=== PATIENT | male | born 1950 | race Caucasian/White ===

== ENCOUNTER 2021-08-25 00:57 | Emergency (ER) | payer OTHER, MEDICAID ==
[~2021-08-25] VITALS: Ht 167.6 cm; Wt 90.7 kg
[2021-08-25 01:00] VITALS: BP 130/82
--- NOTE | 2021-08-25 01:00 | NUR ---
adle galvan. taken to chair C
--- NOTE | 2021-08-25 01:52 | NUR ---
Dr. Maynard evaluting pt at this time.
--- NOTE | 2021-08-25 02:05 | NUR ---
PATIENT BIB [facility] POLICE DEPT. PATIENT EXAMINED BY DR. VIGIL. PATIENT MEDICALLY CLEARED AND RELEASED IN CUSTODY IN STABLE CONDITION. ORIGINAL PRE-BOOK FORM GIVEN TO OFFICER EILEEN, #[id number].
== END 2021-08-25 02:05 ==
LOC: MED 00:57
DX: F10.10 Alcohol abuse, uncomplicated (principal); Z02.89 Encounter for other administrative examinations; V89.2XXA Person injured in unspecified motor-vehicle accident, traffic, initial encounter; Y93.89 Activity, other specified; Y92.89 Other specified places as the place of occurrence of the external cause; Y99.8 Other external cause status
CPT/HCPCS: 99283